=== PATIENT | male | born 1950 | race Native Hawaiian/Other Pacific Islander ===

== ENCOUNTER 2016-09-22 09:41 | Outpatient (CLI) | payer OTHER, BC ==
[~2016-09-22 09:41] MED LIST: ASA LOW STR81 MG PO; HYDRTAB76 PO; KEPPRA1000 MG PO; LAMICTAL25 MG OR; LEVO0.0723 PO; LIPITOR80 MG PO; VALS80CA2 PO
[2016-09-22 10:16] LABS: PLATELET COUNT 200 K/uL (142-355)
[2016-09-22 10:43] LABS: POTASSIUM 4.2 mmol/L (3.6-5.2); SODIUM 139 mmol/L (136-145)
== END 2016-09-22 11:00 | disposition home or self-care (01) ==
LOC: LABW 09:41
PROVIDERS: Physician Assistant
DX: R53.83 Other fatigue (principal); I10 Essential (primary) hypertension; Z79.899 Other long term (current) drug therapy; Z51.81 Encounter for therapeutic drug level monitoring
CPT/HCPCS: 36415; 80053; 82607; 83036; 83735; 84439; 84443; 85027

== ENCOUNTER 2017-04-27 07:31 | Outpatient (CLI) | payer OTHER, BC | END 2017-04-27 19:16 | disposition home or self-care (01) | LOC: LABW 07:31 | PROVIDERS: Internal Medicine Cardiovascular Disease | DX: E78.4 Other hyperlipidemia (principal) | CPT/HCPCS: 36415; 80061; 80076 ==

== ENCOUNTER 2017-07-23 11:23 | Emergency (ER) | payer OTHER, BC ==
[~2017-07-23] VITALS: Ht 175.3 cm; Wt 86.2 kg
[2017-07-23 11:38] VITALS: BP 153/66; TEMP 97.7
[2017-07-23 12:21] LABS: PLATELET COUNT 296 K/uL (142-355)
[2017-07-23 12:23] LABS: POTASSIUM 4.4 mmol/L (3.6-5.2)
== END 2017-07-23 14:03 | disposition home or self-care (01) ==
LOC: ED 11:23
DX: M25.561 Pain in right knee (principal); Z96.651 Presence of right artificial knee joint; R60.9 Edema, unspecified; M25.661 Stiffness of right knee, not elsewhere classified
CPT/HCPCS: 36415; 80048; 85027; 85379; 99283

== ENCOUNTER 2018-01-07 08:00 | Outpatient (CLI) | payer OTHER, BC | END 2018-01-07 19:11 | disposition home or self-care (01) | LOC: US 08:00 | DX: Z13.6 Encounter for screening for cardiovascular disorders (principal) ==

== ENCOUNTER 2018-04-18 08:00 | Outpatient (CLI) | payer OTHER, BC | END 2018-04-18 19:20 | disposition home or self-care (01) | LOC: LABW 08:00 | PROVIDERS: Internal Medicine Cardiovascular Disease | DX: E78.5 Hyperlipidemia, unspecified (principal); Z09 Encounter for follow-up examination after completed treatment for conditions other than malignant neoplasm | CPT/HCPCS: 36415; 80061; 80076 ==

== ENCOUNTER 2019-03-13 07:48 | Outpatient (CLI) | payer OTHER, BC ==
[2019-03-13 08:13] LABS: PLATELET COUNT 181 K/uL (142-355)
[2019-03-13 08:39] LABS: POTASSIUM 3.8 mmol/L (3.6-5.2)
== END 2019-03-13 23:26 | disposition home or self-care (01) ==
LOC: LABW 07:48
PROVIDERS: Internal Medicine
DX: Z00.00 Encounter for general adult medical examination without abnormal findings (principal); I10 Essential (primary) hypertension; Z12.5 Encounter for screening for malignant neoplasm of prostate; N40.0 Benign prostatic hyperplasia without lower urinary tract symptoms
CPT/HCPCS: 36415; 80053; 80061; 81000; 84153; 84439; 84443; 85027

== ENCOUNTER 2019-04-21 08:00 | Outpatient (CLI) | payer OTHER, BC | END 2019-04-21 20:55 | disposition home or self-care (01) | LOC: LABW 08:00 | PROVIDERS: Internal Medicine Cardiovascular Disease | DX: Z09 Encounter for follow-up examination after completed treatment for conditions other than malignant neoplasm (principal); E78.49 Other hyperlipidemia | CPT/HCPCS: 36415; 80061; 80076 ==

== ENCOUNTER 2019-07-30 09:41 | Outpatient (CLI) | payer OTHER, BC | END 2019-07-30 21:15 | disposition home or self-care (01) | LOC: US 09:41 | DX: N62 Hypertrophy of breast (principal) ==

== ENCOUNTER 2020-06-02 15:09 | Outpatient (CLI) | payer OTHER, BC | END 2020-06-02 19:48 | disposition home or self-care (01) | LOC: RAD 15:09 | PROVIDERS: ATTEND Nurse Practitioner Family | DX: U07.1 COVID-19 (principal) ==

== ENCOUNTER 2020-07-12 10:38 | Outpatient (CLI) | payer OTHER, BC ==
[2020-07-12 10:59] LABS: SODIUM 142 mmol/L (136-145)
[2020-07-12 11:52] LABS: PLATELET COUNT 171 K/uL (142-355)
== END 2020-07-12 19:23 | disposition home or self-care (01) ==
LOC: LAB 10:38
PROVIDERS: ATTEND Nurse Practitioner Family
DX: R07.89 Other chest pain (principal); R06.09 Other forms of dyspnea
CPT/HCPCS: 80053; 82550; 82553; 83880; 84484; 85027; 85379

== ENCOUNTER 2020-07-12 10:46 | Outpatient (CLI) | payer OTHER, BC | END 2020-07-12 19:24 | disposition home or self-care (01) | LOC: RAD 10:46 | PROVIDERS: ATTEND Nurse Practitioner Family | DX: R06.09 Other forms of dyspnea (principal) ==

== ENCOUNTER 2020-08-04 14:56 | Outpatient (CLI) | payer OTHER, BC | END 2020-08-04 22:22 | disposition home or self-care (01) | LOC: US 14:56 | PROVIDERS: ATTEND Internal Medicine | DX: M79.605 Pain in left leg (principal) ==

== ENCOUNTER 2020-08-09 11:44 | Outpatient (CLI) | payer OTHER, BC | END 2020-08-09 20:49 | disposition home or self-care (01) | LOC: RAD 11:44 | PROVIDERS: ATTEND Internal Medicine | DX: M79.605 Pain in left leg (principal) ==

== ENCOUNTER 2021-05-24 07:41 | Outpatient (CLI) | payer OTHER, BC | END 2021-05-24 19:06 | disposition home or self-care (01) | LOC: LABW 07:41 | PROVIDERS: ATTEND Internal Medicine Cardiovascular Disease | DX: E78.49 Other hyperlipidemia (principal) | CPT/HCPCS: 36415; 80061; 80076 ==

== ENCOUNTER 2021-06-10 07:48 | Outpatient (CLI) | payer OTHER, BC | END 2021-06-10 20:23 | disposition home or self-care (01) | LOC: LABW 07:48 | PROVIDERS: ATTEND Nurse Practitioner Acute Care | DX: A53.0 Latent syphilis, unspecified as early or late (principal) | CPT/HCPCS: 36415; 86593 ==

== ENCOUNTER 2021-12-27 16:50 | Outpatient (CLI) | payer OTHER, BC ==
[2021-12-27 17:08] LABS: POTASSIUM 3.8 mmol/L (3.6-5.2)
== END 2021-12-27 20:23 | disposition home or self-care (01) ==
LOC: LAB 16:50
PROVIDERS: ATTEND Internal Medicine
DX: Z01.818 Encounter for other preprocedural examination (principal)
CPT/HCPCS: 80053

== ENCOUNTER 2022-06-05 10:40 | Outpatient (CLI) | payer OTHER, BC | END 2022-06-05 19:03 | disposition home or self-care (01) | LOC: RAD 10:40 | PROVIDERS: ATTEND Internal Medicine | DX: J20.9 Acute bronchitis, unspecified (principal) ==

== ENCOUNTER 2022-06-26 08:51 | Outpatient (CLI) | payer OTHER, BC | END 2022-06-26 20:14 | disposition home or self-care (01) | LOC: LABW 08:51 | PROVIDERS: ATTEND Ophthalmology | DX: Z01.812 Encounter for preprocedural laboratory examination (principal) | CPT/HCPCS: 36415; 82565; 84520 ==

== ENCOUNTER 2022-09-12 07:43 | Outpatient (CLI) | payer OTHER, BC ==
[2022-09-12 07:59] LABS: PLATELET COUNT 176 K/uL (142-355)
[2022-09-12 08:22] LABS: POTASSIUM 4.1 mmol/L (3.6-5.2)
== END 2022-09-12 18:55 | disposition home or self-care (01) ==
LOC: LABW 07:43
PROVIDERS: ATTEND Internal Medicine
DX: E03.8 Other specified hypothyroidism (principal); U09.9 Post COVID-19 condition, unspecified
CPT/HCPCS: 36415; 80053; 80061; 81002; 84439; 84443; 85027

== ENCOUNTER 2022-12-18 07:32 | Outpatient (CLI) | payer OTHER, BC | END 2022-12-18 21:50 | disposition home or self-care (01) | LOC: LABW 07:32 | PROVIDERS: ATTEND Internal Medicine Cardiovascular Disease | DX: E78.49 Other hyperlipidemia (principal) | CPT/HCPCS: 36415; 80061; 80076 ==